=== PATIENT | female | born 1955 | race Caucasian/White ===

== ENCOUNTER 2017-01-30 08:01 | Day surgery (SDC) | payer BC ==
--- NOTE | ~2017-01-30 | EGD ---
EGD REPORT [facility] [address] [place] [address] NAME: JULISSA BOJORQUEZ : [birth year] STATUS : REG [facility]#: [id number] AGE: 61 ADM/REG DATE : 01/30/17 MR#: [id number] REPORT SERV DATE: 01/30/17 DICTATED BY: DATE: REPORT STATUS : Draft TRANSCRIBED BY: [employer] [place] [employer] DATE: 01/30/17 [facility] Patient Name: Julissa Bojorquez Date of : 1955 Attending MD: SY HAYWARD MD Procedure Date No Time: 01/30/2017 Procedure: Colonoscopy Indications: Screening for colorectal malignant neoplasm, This is the patient's first colonoscopy, FH of Colon Cancer -distant relative, Incidental lower abdominal pain noted, Incidental episodic diarrhea with gas noted Referring MD: KRZYSZTOF GARBER, NGHIA HUGHES, PREETI SUAZO Medicines: Propofol per Anesthesia Complications: No immediate complications. Estimated blood loss: None. Procedure: Pre-Anesthesia Assessment: - After reviewing the risks and benefits, the patient was deemed in satisfactory condition to undergo the procedure. - Prior to the procedure, a History and Physical was performed, and patient medications and allergies were reviewed. The patient's tolerance of previous anesthesia was also reviewed. The risks and benefits of the procedure and the sedation options and risks were discussed with the patient. All questions were answered, and informed consent was obtained. Prior Anticoagulants: The patient has taken no previous anticoagulant or antiplatelet agents. ASA Grade Assessment: II - A patient with mild systemic disease. After reviewing the risks and benefits, the patient was deemed in satisfactory condition to undergo the procedure. After I obtained informed consent, the scope was passed under direct vision. Throughout the procedure, the patient's blood pressure, pulse, and oxygen saturations were monitored continuously. The CF [id number] was introduced through the anus and advanced to the cecum, identified by appendiceal orifice and ileocecal valve. The colonoscopy was performed without difficulty. The ileocecal valve and appendiceal orifice were photographed. The patient tolerated the procedure well. The quality of the bowel preparation was adequate. The bowel preparation used was Miralax and bisacodyl tablets. Scope withdrawal time was greater than 14 minutes. Findings: EGD REPORT [address] [place]. [address] NAME: JULISSA BOJORQUEZ : [birth year] STATUS : REG [facility] PAT#: [id number] AGE: 61 ADM/REG DATE : 01/30/17 MR#: [id number] REPORT SERV DATE: 01/30/17 DICTATED BY: DATE: REPORT STATUS : Draft TRANSCRIBED BY: [employer] DATE: 01/30/17 The perianal and digital rectal examinations were normal. Pertinent negatives include normal sphincter tone. Non-bleeding internal hemorrhoids were found during anoscopy and were medium-sized and Grade I (internal hemorrhoids that do not prolapse). A few small-mouthed diverticula were found in the sigmoid colon. A sessile polyp was found in the cecum. The polyp was 5 mm in size. The polyp was removed with a hot snare. Resection and retrieval were complete. Estimated blood loss: none. Two sessile polyps were found at the hepatic flexure. The polyps were 4 to 5 mm in size. These polyps were removed with a hot snare. Resection and retrieval were complete. Estimated blood loss: none. A sessile polyp was found in the transverse colon. The polyp was 5 mm in size. The polyp was removed with a hot snare. Resection and retrieval were complete. Estimated blood loss: none. The descending colon and ascending colon appeared normal. Biopsies were taken with a cold forceps for histology. Estimated blood loss: none. The exam was otherwise without abnormality. Impression: - Non-bleeding internal hemorrhoids. - Mild diverticulosis in the sigmoid colon. - One 5 mm polyp in the cecum. Resected and retrieved. - Two 4 to 5 mm polyps at the hepatic flexure. Resected and retrieved. - One 5 mm polyp in the transverse colon. Resected and retrieved. - The descending colon and ascending colon are normal. Biopsied. - The examination was otherwise normal. - Irritable bowel syndrome and possible lactose intolerance. Recommendation: - Discharge patient to home (ambulatory). - Continue present medications. - Begin Align probiotic daily. - Trial of a lactose free diet. - Await pathology results. - Repeat colonoscopy in 3 years for surveillance of multiple adenomas. - Return to GI clinic PRN. - Patient has a contact number available for emergencies. The signs and symptoms of potential delayed complications were discussed with the patient. Return to normal activities tomorrow. Written discharge instructions were provided to the patient. Procedure Code(s): --- Professional --- 31885, Colonoscopy, flexible, proximal to splenic EGD REPORT [address] [address] NAME: JULISSA BOJORQUEZ : [birth year] STATUS : REG [facility]#: [id number] AGE: 61 ADM/REG DATE : 01/30/17 MR#: [id number] REPORT SERV DATE: 01/30/17 DICTATED BY: DATE: REPORT STATUS : Draft TRANSCRIBED BY: [employer] DATE: 01/30/17 flexure; with removal of tumor(s), polyp(s), or other lesion(s) by snare technique 26637, 59, Colonoscopy, flexible, proximal to splenic flexure; with biopsy, single or multiple Diagnosis Code(s): --- Professional --- K64.0, First degree hemorrhoids K58.9, Irritable bowel syndrome without diarrhea K57.30, Diverticulosis of large intestine without perforation or abscess without bleeding D12.3, Benign neoplasm of transverse colon D12.0, Benign neoplasm of cecum Z12.11, Encounter for screening for malignant neoplasm of colon Z80.0, Family history of malignant neoplasm of digestive organs CPT copyright 2013 [employer]. All rights reserved. The codes documented in this report are preliminary and upon casserole preparer review may be revised to meet current compliance requirements. SY AHYWARD MD 01/30/2017 10:44 AM This report has been signed electronically. Number of Addenda: 0 Note Initiated On: 01/30/2017 9:54 AM Scope Withdrawal Time 0 hours 15 minutes 44 seconds [id number] [id number]
[2017-04-27] MEDS ORDERED: WELLSR150 PO (16:31)
[2017-05-01] MEDS ORDERED: KLOR-CON 1010 MEQ PO (08:14)
[2017-05-01] MEDS ORDERED: [UNRECOGNIZED DRUG - OTHER] PO (08:15)
== END 2017-01-30 23:59 | disposition home or self-care (01) ==
LOC: DMU 08:01
PROVIDERS: Internal Medicine Gastroenterology
PROC: 0DBL8ZZ Excision of Transverse Colon, Via Natural or Artificial Opening Endoscopic (ICD-10-PCS; 2017-01-30)
PROC: 0DBK8ZZ Excision of Ascending Colon, Via Natural or Artificial Opening Endoscopic (ICD-10-PCS; 2017-01-30)
PROC: 0DBH8ZZ Excision of Cecum, Via Natural or Artificial Opening Endoscopic (ICD-10-PCS; principal; 2017-01-30 09:30)
PROC: 0DBP8ZX Excision of Rectum, Via Natural or Artificial Opening Endoscopic, Diagnostic (ICD-10-PCS; 2017-01-30 09:30)
DX: Z12.11 Encounter for screening for malignant neoplasm of colon (principal); K57.30 Diverticulosis of large intestine without perforation or abscess without bleeding; K58.9 Irritable bowel syndrome, unspecified; K64.0 First degree hemorrhoids; Z80.0 Family history of malignant neoplasm of digestive organs; D12.0 Benign neoplasm of cecum; D12.3 Benign neoplasm of transverse colon; G47.33 Obstructive sleep apnea (adult) (pediatric); Z88.5 Allergy status to narcotic agent; Z90.710 Acquired absence of both cervix and uterus
CPT/HCPCS: 88305

== ENCOUNTER 2017-03-12 16:04 | Inpatient (IN) | payer BC ==
--- NOTE | ~2017-03-12 | HP ---
History And Physical [address] [place]. [address] NAME: JULISSA BOJORQUEZ : [birth year] STATUS : ADM IN [facility]#: [id number] AGE: 61 ADM/REG DATE : 03/12/17 MR#: [id number] REPORT SERV DATE: 03/12/17 DICTATED BY: YESY HERNANDEZ DATE: 03/12/17 REPORT STATUS : Draft TRANSCRIBED BY: [employer] DATE: 03/12/17 DATE OF ADMISSION: 03/12/2017 CARDIOLOGY ADMISSION HISTORY AND PHYSICAL IDENTIFYING DATA: The patient is a 61-year-old woman with a history of tobacco abuse and peripheral arterial disease. CHIEF COMPLAINT: Acute onset of substernal burning type chest pain at approximately 10 a.m. today. HISTORY OF PRESENT ILLNESS: Ms Bojorquez is a pleasant 61-year-old woman with no previous cardiovascular history. She does, however, have a history of peripheral arterial disease and has been evaluated by Dr. Jean Mayo in the past for periprocedural risk stratification. The patient has not previously had any overt symptoms of angina. The patient was in her usual state of health until this morning at approximately 10 o'clock a.m. The patient had the onset of a vague substernal burning type chest pain. This failed to resolve after several hours, and the patient was brought to the emergency room by her daughter. A 12-lead EKG has demonstrated an acute inferior ST-segment elevation myocardial infarction. The patient does continue to have a grade 3 to 4 out of 10 substernal chest pain at this time. PAST MEDICAL HISTORY: 1. Peripheral arterial disease. 2. Tobacco abuse. 3. Anxiety disorder. 4. Dyslipidemia. PAST SURGICAL HISTORY: 1. Total abdominal hysterectomy-bilateral salpingo-oophorectomy 15 years ago. 2. Bilateral lower extremity stenting-possibly to the iliac vessels by Dr. Benavides. 3. Cholecystectomy. FAMILY HISTORY: The patient's father suffered myocardial infarction in his 60s. Her mother suffered from breast cancer. There is no other significant family history of early coronary heart disease or sudden cardiac . SOCIAL HISTORY: The patient is a one-half to one pack per day smoker for 44 years. She drinks alcohol very rarely. She has no history of recreational drug use. ALLERGIES: THE PATIENT REPORTS AN ALLERGY TO CODEINE. HOME MEDICATIONS: These include Xanax and dehr-zag-zarapxa melatonin. REVIEW OF SYSTEMS: History And Physical [address] [facility] [place]. [address] NAME: JULISSA BOJORQUEZ : [birth year] STATUS : ADM IN PAT#: [id number] AGE: 61 ADM/REG DATE : 03/12/17 MR#: [id number] REPORT SERV DATE: 03/12/17 DICTATED BY: YESY HERNANDEZ DATE: 03/12/17 REPORT STATUS : Draft TRANSCRIBED BY: ANDREW DATE: 03/12/17 A complete 12-system review was performed. This is noncontributory except for the pertinent positives and negatives as noted in the history of present illness above. PHYSICAL EXAMINATION: VITAL SIGNS: Temperature is 98.8 degrees Fahrenheit, blood pressure 139/80, heart rate 91 beats per minute and regular, respirations 16, oxygen saturation is 97% on room air. GENERAL: The patient is a well-nourished, well-developed white woman in no acute distress. EYES: PERRL, EOMI, clear conjunctiva. HEAD/MNT: NCAT with moist mucous membranes and grossly normal hard and soft palate. NECK: Supple with no obvious thyromegaly or lymphadenopathy CARDIOVASCULAR: There is a regular rhythm with a normal S1 and a physiologically split second heart sound. No significant murmurs, rubs, or gallops are present. The jugular venous pressure appears normal. PULMONARY: Clear to auscultation bilaterally, no wheezing, rales or rhonchi noted. No dullness to percussion. Non-labored. ABDOMINAL: Soft, non-tender, non-distended with no hepatosplenomegaly noted. EXTREMITIES: There is no clubbing, cyanosis, or edema. There is a 2+ right radial pulse. MUSCULOSKELETAL: Grossly normal strength and range of motion in all extremities INTEGUMENTARY: Skin appears intact with no bruises, wounds or active lesions noted NEURO/PSYC: Alert and oriented x3, with no dysarthria, facial droop or lateralizing weakness noted. STUDIES: 12-lead EKG: This shows normal sinus rhythm with a rate of 87 beats per minute. There is 1 to [address]-segment elevation in leads II, III, and AVF with reciprocal ST depression in 1 and aVL. There is [address] depression in leads V2 and V3. The findings are consistent with an acute inferoposterior myocardial infarction. LABORATORY DATA: Labs are pending at this time. ASSESSMENT AND PLAN: 1. Acute inferoposterior myocardial infarction: We will proceed with primary percutaneous coronary intervention. Informed consent has been obtained. The patient is willing to take dual anti-platelet therapy for one year and has no obvious contraindications to dual anti-platelet therapies. The patient will be started on carvedilol and atorvastatin. 2. Peripheral arterial disease: The patient reports a history of chronic occlusion of her lower extremity vasculature. It is unclear whether this is at the iliac level or superficial femoral artery level. A radial procedure is planned. Again, the patient will be placed on high potency statin therapy. 3. Tobacco abuse: The patient will be strongly counseled to discontinue cigarette smoking. [facility]W Yesy Hernandez MD History And Physical [address] [address] NAME: JULISSA BOJORQUEZ : [birth year] STATUS : ADM IN [facility]#: [id number] AGE: 61 ADM/REG DATE : 03/12/17 MR#: [id number] REPORT SERV DATE: 03/12/17 DICTATED BY: YESY HERNANDEZ DATE: 03/12/17 REPORT STATUS : Draft TRANSCRIBED BY: ANDREW DATE: 03/12/17 / [id number] CC: Yesy Hernandez MD
[2017-03-12] MEDS ORDERED: X5 PO (16:06)
[2017-03-12] MEDS ORDERED: MELA3 PO (16:06)
[2017-03-12 16:13] LABS: BASOPHILS 0.6 %; BASOPHILS ABSOLUTE 0.07 10/3/uL (0.0-0.16); EOSINOPHILS 13.8 %; ER CBC TAT 0 Hrs 11 Mins; HEMATOCRIT 50.1 % (36.0-48.0); HEMOGLOBIN 17.9 g/dL (12.0-16.0); IMMATURE GRANULOCYTES 0.3 %; IMMATURE GRANULOCYTES ABSOLUTE 0.04 10/3/uL (0.0-0.11); LYMPHOCYTES 22.9 %; LYMPHOCYTES ABSOLUTE 2.66 10/3/uL (0.67-4.30); MEAN CORPUSCULAR HEMOGLOB 32.1 pg (26.0-34.0); MEAN CORPUSCULAR VOLUME 89.9 fL (80-100); MEAN PLATELET VOLUME 8.7 fL (9.2-13.0); MONOCYTES ABSOLUTE 1.62 10/3/uL (0.21-1.20); NEUTROPHILS 48.4 %; NEUTROPHILS ABSOLUTE 5.62 10/3/uL (2.02-8.40); PLATELET COUNT 262 10/3/uL (150-400); RBC DISTRIBUTION WIDTH 13.4 % (12.0-16.0); RED CELL COUNT 5.57 10/6/uL (4.0-5.6); WHITE BLOOD CELLS 11.6 10/3/uL (4.5-10.5)
[2017-03-12 16:15] LABS: MANUAL DIFF NO %; MEAN CORPUS HGB CONC 35.7 g/dL (32.0-36.0)
[2017-03-12 16:17] LABS: PARTIAL THROMBO TIME 30.2 SEC (22.5-37.2); PROTIME (NOT ORD) 13.2 SEC (12.0-14.5)
[2017-03-12 16:25] LABS: CALCIUM, SERUM 9.2 MG/DL (8.5-10.4); CHLORIDE, SERUM 100 MMOL/L (96-112); CO2 (CARBON DIOXIDE) 28 MMOL/L (24-34); CREATININE 0.99 MG/DL (0.55-1.02); GFR AFRICAN AMERICAN 72 ML/MIN (>=60); GFR NON AFRICAN AMERICAN 62 ML/MIN (>=60); SODIUM, SERUM 135 MMOL/L (135-148)
[2017-03-12 16:27] LABS: BUN (BLOOD UREA NITROGEN) 13 MG/DL (6-23); GLUCOSE, SERUM 93 MG/DL (60-99)
[2017-03-12 16:28] LABS: CHEST PAIN PROFILE TAT 0 Hrs 26 Mins; TROPONIN I 1.23 NG/ML (<0.05)
[2017-03-13 04:35] LABS: BASOPHILS 0.3 %; BASOPHILS ABSOLUTE 0.04 10/3/uL (0.0-0.16); EOSINOPHILS 13.2 %; EOSINOPHILS ABSOLUTE 1.57 10/3/uL (0.0-0.53); HEMOGLOBIN 15.7 g/dL (12.0-16.0); IMMATURE GRANULOCYTES 0.3 %; IMMATURE GRANULOCYTES ABSOLUTE 0.04 10/3/uL (0.0-0.11); LYMPHOCYTES 17.4 %; LYMPHOCYTES ABSOLUTE 2.07 10/3/uL (0.67-4.30); MEAN CORPUS HGB CONC 35.1 g/dL (32.0-36.0); MEAN CORPUSCULAR HEMOGLOB 31.5 pg (26.0-34.0); MEAN CORPUSCULAR VOLUME 89.8 fL (80-100); MEAN PLATELET VOLUME 8.7 fL (9.2-13.0); MONOCYTES 13.4 %; NEUTROPHILS 55.4 %; NEUTROPHILS ABSOLUTE 6.58 10/3/uL (2.02-8.40); PLATELET COUNT 222 10/3/uL (150-400); RBC DISTRIBUTION WIDTH 13.3 % (12.0-16.0); RED CELL COUNT 4.98 10/6/uL (4.0-5.6); WHITE BLOOD CELLS 11.9 10/3/uL (4.5-10.5)
[2017-03-13 04:36] LABS: HEMATOCRIT 44.7 % (36.0-48.0); MANUAL DIFF NO %
[2017-03-13 05:00] LABS: CALCIUM, SERUM 8.6 MG/DL (8.5-10.4); CHLORIDE, SERUM 107 MMOL/L (96-112); CHOL/HDL RATIO(NOT ORDER) 5.6 (0-5); CHOLESTEROL 157 MG/DL (< 200); CPK 1814 U/L (0-200); CREATININE 0.76 MG/DL (0.55-1.02); GFR AFRICAN AMERICAN 99 ML/MIN (>=60); GFR NON AFRICAN AMERICAN 85 ML/MIN (>=60); GLUCOSE, SERUM 94 MG/DL (60-99); HDL CHOLESTEROL 28 MG/DL (> 49); LDL CHOLESTEROL 91 MG/DL (< 130); NON-HDL CHOLESTEROL 129 MG/DL (< 160); SODIUM, SERUM 136 MMOL/L (135-148); TRIGLYCERIDE 191 MG/DL (< 150)
[2017-03-13 05:03] LABS: BUN (BLOOD UREA NITROGEN) 9 MG/DL (6-23); CO2 (CARBON DIOXIDE) 21 MMOL/L (24-34)
[2017-03-13 13:08] LABS: TROPONIN I 30.4 NG/ML (<0.05)
[2017-03-14 04:40] LABS: BASOPHILS 0.4 %; BASOPHILS ABSOLUTE 0.04 10/3/uL (0.0-0.16); EOSINOPHILS 10.5 %; EOSINOPHILS ABSOLUTE 1.18 10/3/uL (0.0-0.53); HEMATOCRIT 45.1 % (36.0-48.0); HEMOGLOBIN 15.9 g/dL (12.0-16.0); IMMATURE GRANULOCYTES 0.6 %; IMMATURE GRANULOCYTES ABSOLUTE 0.07 10/3/uL (0.0-0.11); LYMPHOCYTES 22.5 %; LYMPHOCYTES ABSOLUTE 2.52 10/3/uL (0.67-4.30); MANUAL DIFF NO %; MEAN CORPUS HGB CONC 35.3 g/dL (32.0-36.0); MEAN CORPUSCULAR HEMOGLOB 31.4 pg (26.0-34.0); MEAN CORPUSCULAR VOLUME 89.1 fL (80-100); MEAN PLATELET VOLUME 8.6 fL (9.2-13.0); MONOCYTES 15.5 %; MONOCYTES ABSOLUTE 1.74 10/3/uL (0.21-1.20); NEUTROPHILS 50.5 %; NEUTROPHILS ABSOLUTE 5.64 10/3/uL (2.02-8.40); PLATELET COUNT 230 10/3/uL (150-400); RBC DISTRIBUTION WIDTH 13.2 % (12.0-16.0); RED CELL COUNT 5.06 10/6/uL (4.0-5.6); WHITE BLOOD CELLS 11.2 10/3/uL (4.5-10.5)
[2017-03-14 04:53] LABS: BUN (BLOOD UREA NITROGEN) 9 MG/DL (6-23); CALCIUM, SERUM 9.3 MG/DL (8.5-10.4); CHLORIDE, SERUM 103 MMOL/L (96-112); CO2 (CARBON DIOXIDE) 24 MMOL/L (24-34); CREATININE 0.86 MG/DL (0.55-1.02); GFR AFRICAN AMERICAN 85 ML/MIN (>=60); GFR NON AFRICAN AMERICAN 73 ML/MIN (>=60); GLUCOSE, SERUM 92 MG/DL (60-99); POTASSIUM, SERUM 3.9 MMOL/L (3.5-5.3); SODIUM, SERUM 133 MMOL/L (135-148)
[2017-03-14] MEDS ORDERED: ASAB PO (13:20)
[2017-03-14] MEDS ORDERED: EFFIENT10 PO (13:20)
[2017-03-14] MEDS ORDERED: LIPITOR40 (13:21)
[2017-03-14] MEDS ORDERED: COREG3 PO (13:21)
[2017-04-27] MEDS ORDERED: WELLSR150 PO (16:31)
[2017-05-01] MEDS ORDERED: KLOR-CON 1010 MEQ PO (08:14)
[2017-05-01] MEDS ORDERED: [UNRECOGNIZED DRUG - OTHER] PO (08:15)
== END 2017-03-14 13:52 | disposition home or self-care (01) | DRG 247 ==
LOC: ER 16:04 → SSU2 16:07 → CCU 18:52
PROVIDERS: Emergency Medicine; Internal Medicine Cardiovascular Disease
DX: I21.11 ST elevation (STEMI) myocardial infarction involving right coronary artery (principal); E78.5 Hyperlipidemia, unspecified; I73.9 Peripheral vascular disease, unspecified; I25.10 Atherosclerotic heart disease of native coronary artery without angina pectoris; F41.9 Anxiety disorder, unspecified; Z95.5 Presence of coronary angioplasty implant and graft; Z72.0 Tobacco use; Z98.890 Other specified postprocedural states; Z82.49 Family history of ischemic heart disease and other diseases of the circulatory system; Z80.3 Family history of malignant neoplasm of breast; Z79.01 Long term (current) use of anticoagulants
CPT/HCPCS: 71010; 80048; 80061; 82550; 82565; 83735; 84484; 85025; 85347; 85610; 85730; 87641; 93005; 93458; 99152; 99153; 99285; A9270-GY; C1725; C1769; C1874; C1887; C1894; C8929; C9606; J0583; J2250; J3010; Q9957; Q9967